=== PATIENT | male | born 2000 | race African-American/Black ===

== ENCOUNTER 2022-01-02 17:07 | Outpatient (CLI) | payer BC, SELFPAY ==
--- NOTE | 2022-01-02 17:30 | MR_ITS ---
[address] [address] Phone:?[phone] Fax:?[phone] Referring Physician Information: Sean Marcelo M.D. [address] [facility] [address] Phone:?[phone] Fax:?[phone] Patient:?Rc Altman D.O.B:?2000 Sex:?Male Phone:?[phone] [facility] MRN:?[id number] Exam Date:?01/02/2022 ? EXAM: MRI OF THE LUMBAR SPINE CLINICAL INFORMATION: 21-year-old male with low back pain and left sciatica status post football injury. TECHNICAL INFORMATION: T1, T2 fast spin echo and STIR sagittal thin sections through the lumbar spine with T1 and T2 fast spin echo axial sections at selected levels. INTERPRETATION: Segmentation and Alignment:?Normal segmentation of the lumbar vertebral elements is demonstrated. Lordotic alignment of lumbar spine is maintained. Sacrum and Sacroiliac joints:?The upper bony sacrum and sacroiliac joints appear normal. Conus/distal cord:?Normal signal intensity within the conus medullaris and visualized lower spinal cord is demonstrated. No intradural mass or arachnoidal adhesions are evident. Osseous and paraspinous structures:?There are no paraspinous soft tissue abnormalities.?There is minimal disc bulging at L3-4 through L5-S1. Intervertebral disc signal is normal, and there is no canal or foraminal stenosis. No marrow edema or evidence for fracture. Mild facet arthrosis at L5- S1 is demonstrated, and on the left at L4-5. CONCLUSION: 1. No evidence for fracture or disc herniation. 2. Mild annular bulging at L3-4 through L5-S1 and facet arthrosis in the lower lumbar distribution. Electronically signed on 01/03/2022 9:42:00 AM by Joshua Lee M.D.
== END 2022-01-02 17:08 | disposition home or self-care (01) ==
PROVIDERS: Visit Provider Family Medicine
DX: M54.42 Lumbago with sciatica, left side (principal); M51.27 Other intervertebral disc displacement, lumbosacral region
CPT/HCPCS: 72148